=== PATIENT | female | born 1930 | race Caucasian/White ===

== ENCOUNTER 2018-04-08 08:25 | Observation (INO) ==
--- NOTE | 2018-04-08 09:06 | ED ---
HPI General Chief Complaint: Chest Pain Stated Complaint: Medical clearance Time Seen by Provider: 04/08/18 08:51 Source: patient Mode of arrival: ambulatory Limitations: no limitations History of Present Illness HPI narrative: 87-year-old female complained of chest pain and abdominal pain. Patient states that she has history angina and has frequent intermittent recurrent chest pain. Patient states that the chest pain usually resolved with nitroglycerin sublingually. Patient states that she started having substernal chest pain last night with radiation to the throat. Patient states that the chest pain lasted about an hour. Patient states that the chest pain resolved with nitroglycerin sublingually. Patient denies any chest pain now. Patient has been seen by aviation maintenance technician Dr. Arvizu. Patient was given prescription for metoprolol which she took for a short period of time and then stopped taking it because of side effect. Patient has been seen by personal physician and put on medication for COPD which she stopped also taking also. Patient states that she has a lot of indigestion, lightheadedness, generally malaise, nausea with eating recently. Patient states that she has intermittent low abdominal pain for the past month. Patient denies any dysuria frequency. Patient denies any vaginal discharge or bleeding. MD complaint: chest pain Complete Quality Measures for STEMI Alert Patients STEMI Alert: No Onset (ago): year(s) Duration: intermittent and now resolved Onset: during rest Pain location: substernal Severity: mild Severity scale (1-10): 5 Quality: aching and heaviness Pain radiation: neck Relieving factors: nitroglycerin Exacerbating factors: nothing Associated symptoms: nausea Treatments prior to arrival chest pain: none Related Data Home Medications Medication Instructions Recorded Confirmed amlodipine-olmesartan 1 tab PO DAILY 04/08/18 04/08/18 budesonide-formoterol [Symbicort] 2 puff INHALATION BID 04/08/18 04/08/18 hydrochlorothiazide 25 mg PO DAILY 04/08/18 04/08/18 levothyroxine 125 mcg PO DAILY 04/08/18 04/08/18 metoprolol tartrate 25 mg PO BID 04/08/18 04/08/18 omeprazole 20 mg PO DAILY 04/08/18 04/08/18 Allergies Allergy/AdvReac Type Severity Reaction Status Date / Time tetanus toxoid, adsorbed Allergy Severe UNKNOWN Unverified 05/18/17 19:08 CHILDHOOD REACTION Review of Systems Except as stated in HPI: all other systems reviewed are negative PMFSH Social History Social History Substance History: No History of Abuse Second Hand Smoke Exposure: No Smoking Status: Never smoker How Often Do You Have a Drink Containing Alcohol: Never Recent Travel in [facility] within the Last 8 Weeks: No Recent Out of Country Travel within the Last 8 Weeks: No Immunization History Tetanus Immunization: >5 Years Hx Influenza Vaccine This Season: Yes Exam Narrative Exam Narrative: GENERAL: Well-nourished, well-developed patient. SKIN: Focused skin assessment warm/dry. HEAD: Normocephalic. EYES: No scleral icterus. No injection or drainage. NECK: Supple, trachea midline. No JVD or lymphadenopathy. CARDIOVASCULAR: Regular rate and rhythm without murmurs, gallops, or rubs. RESPIRATORY: Breath sounds equal bilaterally. No accessory muscle use. GASTROINTESTINAL: Abdomen soft, nondistended. Patient has mild tenderness on palpation diffuse over the abdomen. No rebound tenderness. No mass. MUSCULOSKELETAL: No cyanosis, or edema. BACK: Nontender without obvious deformity. No CVA tenderness. Course Initial Documented Vital Signs Temperature 98.4 F 04/08/18 08:28 Pulse Rate 78 04/08/18 08:28 Respiratory Rate 20 04/08/18 08:28 Blood Pressure 189/88 H 04/08/18 08:28 Pulse Oximetry 97 04/08/18 08:28 Last Documented Vital Signs Temperature 98.1 F 04/08/18 16:00 Pulse Rate 97 H 04/08/18 16:00 Respiratory Rate 16 04/08/18 16:00 Blood Pressure 163/75 H 04/08/18 16:00 Pulse Oximetry 97 04/08/18 16:00 Medical Decision Making MDM Narrative Medical decision making narrative: 87-year-old female with chest pain and abdominal pain. Differential Diagnosis Differential Diagnosis: Differential diagnosis including angina, AR, PE, pneumothorax, gastritis, PUD, pancreatitis, cholecystitis, colitis, UTI, pyelonephritis, nephrolithiasis. Lab Data Result diagrams: 04/08/18 09:09 04/08/18 09:09 Lab Results 04/08/18 04/08/18 04/08/18 Range/Units 09:09 09:09 09:09 WBC 6.9 (4.0-11.0) th/mm3 RBC 4.55 (4.00-5.30) mil/mm3 Hgb 13.1 (11.6-15.3) gm/dL Hct 39.4 (35.0-46.0) % MCV 86.6 (80.0-100.0) fL MCH 28.8 (27.0-34.0) pg MCHC 33.2 (32.0-36.0) % RDW 15.5 (11.6-17.2) % Plt Count 315 (150-450) th/mm3 MPV 7.6 (7.0-11.0) fL Neut % (Auto) 47.3 (16.0-70.0) % Lymph % (Auto) 42.9 (9.0-44.0) % Whiteside % (Auto) 6.7 (0.0-8.0) % Eos % (Auto) 2.7 (0.0-4.0) % Baso % (Auto) 0.4 (0.0-2.0) % Neut # (Auto) 3.3 (1.8-7.7) th/mm3 Lymph # (Auto) 3.0 (1.0-4.8) th/mm3 Whiteside # (Auto) 0.5 (0.0-0.9) th/mm3 Eos # (Auto) 0.2 (0.0-0.4) th/mm3 Baso # (Auto) 0.0 (0.0-0.2) th/mm3 WBC Differential . Differential Comment Auto diff final PT 9.9 (9.8-11.6) sec INR 1.0 Ratio APTT 24.1 L (24.3-30.1) sec Sodium (136-145) meq/L Potassium (3.5-5.1) meq/L Chloride (98-107) meq/L Carbon Dioxide (21.0-32.0) meq/L Anion Gap (5-15) meq/L BUN (7-18) mg/dL Creatinine (0.50-1.00) mg/dL Estimated GFR (>89) mL/min Random Glucose (74-106) mg/dL Calcium (8.5-10.1) mg/dL Magnesium 2.3 (1.5-2.5) mg/dL Total Bilirubin (0.2-1.0) mg/dL AST (15-37) U/L ALT (10-53) U/L Alkaline Phosphatase (45-117) U/L Total Creatine Kinase 120 (26-192) U/L CK-MB (CK-2) 2.0 (0.5-3.6) ng/mL Troponin I Less than 0.02 L (0.02-0.05) ng/mL Total Protein (6.4-8.2) g/dL Albumin (3.4-5.0) g/dL Lipase 59 L (73-393) U/L Urine Color (Yellw/Straw) Urine Clarity (Clear) Urine pH (5.0-8.5) Ur Specific Walsh (1.002-1.035) Urine Protein (Neg-Trace) mg/dL Urine Glucose (UA) (Negative) mg/dL Urine Ketones (Negative) mg/dL Urine Occult Blood (Negative) Urine Nitrate (Negative) Urine Bilirubin (Negative) Urine Urobilinogen (Less than 2) mg/dL Ur Leukocyte Esterase (Negative) Urine RBC (0-3) /hpf Urine WBC (0-5) /hpf Ur Squamous Epith Cells (0-5) /hpf Urine Mucus (Occasional) /lpf Micro UA Comment Urine Culture Comments 04/08/18 04/08/18 Range/Units 09:09 10:55 WBC (4.0-11.0) th/mm3 RBC (4.00-5.30) mil/mm3 Hgb (11.6-15.3) gm/dL Hct (35.0-46.0) % MCV (80.0-100.0) fL MCH (27.0-34.0) pg MCHC (32.0-36.0) % RDW (11.6-17.2) % Plt Count (150-450) th/mm3 MPV (7.0-11.0) fL Neut % (Auto) (16.0-70.0) % Lymph % (Auto) (9.0-44.0) % Whiteside % (Auto) (0.0-8.0) % Eos % (Auto) (0.0-4.0) % Baso % (Auto) (0.0-2.0) % Neut # (Auto) (1.8-7.7) th/mm3 Lymph # (Auto) (1.0-4.8) th/mm3 Whiteside # (Auto) (0.0-0.9) th/mm3 Eos # (Auto) (0.0-0.4) th/mm3 Baso # (Auto) (0.0-0.2) th/mm3 WBC Differential Differential Comment PT (9.8-11.6) sec INR Ratio APTT (24.3-30.1) sec Sodium 142 (136-145) meq/L Potassium 4.0 (3.5-5.1) meq/L Chloride 108 H (98-107) meq/L Carbon Dioxide 26.2 (21.0-32.0) meq/L Anion Gap 8 (5-15) meq/L BUN 19 H (7-18) mg/dL Creatinine 0.97 (0.50-1.00) mg/dL Estimated GFR 55 L (>89) mL/min Random Glucose 118 H (74-106) mg/dL Calcium 9.1 (8.5-10.1) mg/dL Magnesium (1.5-2.5) mg/dL Total Bilirubin 0.3 (0.2-1.0) mg/dL AST 13 L (15-37) U/L ALT 13 (10-53) U/L Alkaline Phosphatase 69 (45-117) U/L Total Creatine Kinase (26-192) U/L CK-MB (CK-2) (0.5-3.6) ng/mL Troponin I (0.02-0.05) ng/mL Total Protein 7.8 (6.4-8.2) g/dL Albumin 3.7 (3.4-5.0) g/dL Lipase (73-393) U/L Urine Color Yellow (Yellw/Straw) Urine Clarity Clear (Clear) Urine pH 6.0 (5.0-8.5) Ur Specific Walsh 1.041 H (1.002-1.035) Urine Protein Negative (Neg-Trace) mg/dL Urine Glucose (UA) Negative (Negative) mg/dL Urine Ketones Negative (Negative) mg/dL Urine Occult Blood Negative (Negative) Urine Nitrate Negative (Negative) Urine Bilirubin Negative (Negative) Urine Urobilinogen Less than 2 (Less than 2) mg/dL Ur Leukocyte Esterase Trace H (Negative) Urine RBC 1 (0-3) /hpf Urine WBC 1 (0-5) /hpf Ur Squamous Epith Cells 2 (0-5) /hpf Urine Mucus Few H (Occasional) /lpf Micro UA Comment Culture not ind Urine Culture Comments Culture not ind Imaging Data Radiologist's impression: ITS Impressions Chest X-Ray 04/08/18 09:00 CONCLUSION: Stable chest without evidence of acute process. Abdomen/Pelvis CT 04/08/18 09:02 CONCLUSION: 1. There continues to be some mild dilatation of the biliary system most likely reservoir effect secondary to previous cholecystectomy. Recommend correlation with patient's liver laboratory values. 2. Stable benign-appearing 1.4 cm right hepatic cyst. 3. Multiple bilateral benign-appearing renal cysts. 4. Scattered diverticulosis involving the descending and sigmoid colon without inflammatory changes. Myocardial Perfusion Scan Nuc Med 04/08/18 12:11 CONCLUSION: 1. No evidence of ischemic myocardial changes. Discharge Plan Discharge Disposition Patient Disposition: 01 Discharge Home Discharge Condition Condition: Stable Discharge Order Discharge Orders: Discharge Order (Routine); Ordered 04/08/18 Ordered By: Walt Gooden Discharge Details Anticipated Discharge Date: 04/08/18 Physicians Team ED Provider: Marc Rdz Primary Care Provider: UNKNOWN, Attending Provider: Sean Combs Status ED Status: Left Department Discharge Information Discharge Date/Time: 04/08/18 13:30
[2018-04-08 09:26] LABS: Baso % (Auto) 0.4 % (0.0-2.0); Eos # (Auto) 0.2 th/mm3 (0.0-0.4); Eos % (Auto) 2.7 % (0.0-4.0); Hematocrit 39.4 % (35.0-46.0); Hemoglobin 13.1 gm/dL (11.6-15.3); Lymph % (Auto) 42.9 % (9.0-44.0); Mean Corpuscular HGB Conc 33.2 % (32.0-36.0); Mean Corpuscular Hemoglobin 28.8 pg (27.0-34.0); Mean Corpuscular Volume 86.6 fL (80.0-100.0); Mean Platelet Volume 7.6 fL (7.0-11.0); Mono # (Auto) 0.5 th/mm3 (0.0-0.9); Mono % (Auto) 6.7 % (0.0-8.0); Neut # (Auto) 3.3 th/mm3 (1.8-7.7); Neut % (Auto) 47.3 % (16.0-70.0); Platelet Count 315 th/mm3 (150-450); Red Blood Count 4.55 mil/mm3 (4.00-5.30); Red Cell Distribution Width 15.5 % (11.6-17.2); White Blood Count 6.9 th/mm3 (4.0-11.0)
--- NOTE | 2018-04-08 09:31 | XR ---
EXAM DATE: 04/08/2018 9:28 AM EDT AGE/SEX: 87 years / Female INDICATIONS: Chest pains last night with pressure. CLINICAL DATA: This is the patient's initial encounter. Patient reports that signs and symptoms have been present for 2 days and indicates a pain score of 6/10. MEDICAL/SURGICAL HISTORY: Hypertension. Diabetes. None. COMPARISON: [facility] [place], CHEST SINGLE AP, 10/06/2015. . FINDINGS: A single AP view of the chest demonstrates the lungs to be symmetrically aerated without evidence of mass, infiltrate or effusion. The cardiomediastinal contours are unremarkable. Osseous structures a re intact. CONCLUSION: Stable chest without evidence of acute process. Electronically signed by: Glenn Alvarez MD 04/08/2018 9:30 AM EDT
[2018-04-08 09:34] LABS: Activated Partial Thrombo Time 24.1 sec (24.3-30.1); Prothrombin Time 9.9 sec (9.8-11.6)
[2018-04-08 09:45] LABS: Albumin 3.7 g/dL (3.4-5.0); Anion Gap 8 meq/L (5-15); Aspartate Aminotransferase 13 U/L (15-37); Blood Urea Nitrogen 19 mg/dL (7-18); Calcium 9.1 mg/dL (8.5-10.1); Carbon Dioxide 26.2 meq/L (21.0-32.0); Chloride 108 meq/L (98-107); Glomerular Filtration Rate 55 mL/min (>89); Glucose,Random 118 mg/dL (74-106); Sodium 142 meq/L (136-145)
[2018-04-08 09:46] LABS: Lipase 59 U/L (73-393); Magnesium 2.3 mg/dL (1.5-2.5)
[2018-04-08 09:48] LABS: Alanine Aminotransferase 13 U/L (10-53); Alkaline Phosphatase 69 U/L (45-117); Total Protein 7.8 g/dL (6.4-8.2)
[2018-04-08 09:49] LABS: Creatine Kinase 120 U/L (26-192)
--- NOTE | 2018-04-08 10:40 | CT ---
EXAM DATE: 04/08/2018 10:32 AM EDT AGE/SEX: 87 years / Female INDICATIONS: Abdomen and chest pain. Nausea. CLINICAL DATA: This is the patient's initial encounter. Patient reports that signs and symptoms have been present for 2 days and indicates a pain score of 4/10. MEDICAL/SURGICAL HISTORY: Carcinoma, bladder. Appendectomy. Cholecystectomy. ORAL CONTRAST: No oral contrast ingested. RADIATION DOSE: 6.77 CTDI (mGy) COMPARISON: [facility], CT ABDOMEN & PELVIS W CONTRAST, 12/12/2011. . TECHNIQUE: Multiple contiguous axial images were obtained through the abdomen and pelvis following b olus infusion of 96 ml Omnipaque 350 (iohexol) nonionic water-soluble contrast as a single exam dos e. No oral contrast ingested. Using automated exposure control and adjustment of the mA and/or kV ac cording to patient size, radiation dose was kept as low as reasonably achievable to obtain optimal di agnostic quality images. DICOM format image data is available electronically for review and comparis on. FINDINGS: Lower Lungs: The visualized lower lungs are clear. Small hiatal hernia at the GE junction. Liver: The liver is normal in size. There continues to be some mild dilatation of the biliary system which was present in 2011. There is a stable small hepatic cyst measuring 1.4 cm in the right lobe of the liver. This is unchanged compared to the prior exam. The gallbladder is been surgically removed. There is no evidence of ascites. Spleen: Homogeneous density without enlargement. Pancreas: Unremarkable without mass or calcification. Kidneys: Normal in size and shape. No evidence of mass or hydronephrosis. There continue be multiple bilateral renal cysts. The largest cyst on the right measures 6.7 cm. The largest cyst on the left m easures 4.5 cm. These cysts were present on the prior exam. Adrenal Glands: Unremarkable. Aorta: Atherosclerotic changes. No aneurysmal dilatation. Bowel/Mesentery: The bowel loops are grossly unremarkable. The cecum and sigmoid colon have a normal configuration. There is some scattered diverticulosis throughout the sigmoid and descending colon wi thout definite inflammatory changes. There is stool throughout the colon. These findings are not sign ificantly changed compared to the prior exam. No free fluid or loculated fluid collections. Abdominal Wall: Intact. Retroperitoneum: No evidence of adenopathy in the retrocrural, para-aortic, or deep pelvic regions. Bladder: Contours are smooth. Reproductive Organs: No abnormal masses or calcifications seen. No significant change compared to 20 12. Inguinal: The inguinal region is unremarkable without evidence of adenopathy. Bony Structures: Primary bony degenerative changes. No significant changes compared to 2012. CONCLUSION: 1. There continues to be some mild dilatation of the biliary system most likely reservoir effect sec ondary to previous cholecystectomy. Recommend correlation with patient's liver laboratory values. 2. Stable benign-appearing 1.4 cm right hepatic cyst. 3. Multiple bilateral benign-appearing renal cysts. 4. Scattered diverticulosis involving the descending and sigmoid colon without inflammatory changes. Electronically signed by: Stefano Hamilton MD 04/08/2018 10:39 AM EDT
[2018-04-08 11:18] LABS: Bilirubin,Urine Negative (Negative); Clarity,Urine Clear (Clear); Color,Urine Yellow (Yellw/Straw); Glucose,Urine (UA) Negative (Negative); Leukocyte Esterase,Urine Trace (Negative); Mucus,Urine Few /lpf (Occasional); Nitrite,Urine Negative (Negative); Specific Gravity,Urine 1.041 (1.002-1.035); Squamous Epithelial Cell,Urine 2 /hpf (0-5)
--- NOTE | 2018-04-08 14:04 | ECG ---
Date Performed: 04/08/2018 Time Performed: 08:40:07 PTAGE: 87 years EKG: Sinus rhythm NORMAL ECG No significant change from prior electrocardiogram. PREVIOUS TRACING : 04/25/2014 08.47 DOCTOR: Anirudh Silveira Interpretating Date/Time 04/18/2018 17:52:02
[2018-04-08] MEDS ORDERED: Regadenoson Inj 0.4 MG/5 ML Syringe IV.PUSH ONE ×2 (15:07→15:48)
--- NOTE | 2018-04-08 16:00 | P.HPCA ---
History of Present Illness Primary Care Physician: UNKNOWN Chief Complaint: Chest pain History of Present Illness: This is a 87-year-old female that presents to ED with complaint of chest discomfort in the center of her chest that she describes as a tightness that began yesterday evening and persisted throughout the night and even is present at this time. She took a total of 3 nitroglycerin at home which did help with her symptoms but only brought it down to about a 2 out of 10. States that she has been prescribed nitroglycerin by her deputy building guard although she states she has never had an abnormal stress test he can recall ever having a cardiac catheterization. She states that she was diagnosed with angina and uses a nitro whenever she gets chest pain. Usually the nitro resolves quickly but it did not last night which concerned her and made her come to the ED today. She felt some nausea and shortness of breath with her symptoms last night but no diaphoresis. The discomfort radiated to her left shoulder and noticed some tingling in her fingers. She saw her deputy building guard about a month ago for checkup and believes she had a normal stress test about 1 year ago in his office. She follows Dr. Arvizu. A CT of abdomen and pelvis were obtained in the ED. Patient is denying having abdominal pains but states she felt very nauseous and thought she also may been constipated although she states she had a bowel movement yesterday and the day before that. Lifetime non-smoker. Denies illicit drug use or alcohol use. Denies family history of CAD. Patient has had cholecystectomy. - Diagnosis (1) Chest pain (2) Hypertension (3) GERD (gastroesophageal reflux disease) (4) Hypothyroidism (5) Hyperlipidemia (6) Asthma Inpatient Certification: I certify that the inpatient services were ordered in accordance with Medicare regulations governing the order. This includes certification that hospital inpatient services are reasonable and necessary and in the case of services not specified as inpatient-only under 42 CFR 419.22(n), that they are appropriately provided as inpatient services in accordance to with the 2-midnight benchmark under 43 CFR 412.3(e) Review of Systems General: Patient denies fevers, chills recent, and recent travel HEENT: Patient denies headache, sore throat, difficulty swallowing. Cardiovascular: Has the chest discomfort as mentioned above. Denies sensation of heart beating rapidly or irregularly. No syncope. Denies diaphoresis. Respiratory: She was a little short of breath. Denies inspirational chest discomfort. Denies coughing wheezing or hemoptysis. GI: She was nauseous last evening but denies vomiting, diarrhea, abdominal pain , bloody stools. Musculoskeletal: Patient denies joint pain or edema. Denies calf pain or edema. Neurovascular: Patient denies numbness, tingling, weakness in extremities. Denies headache. Endocrine: Denies polyuria and polydipsia. Hematologic: Denies easy bruising. Skin: Denies rash or itching. PMFSH - History History Provided By: Patient - Medical History Medical History: Medical History (Last Reviewed 04/08/18 @ 09:08 by Marc Rdz MD) Angina at rest COPD (chronic obstructive pulmonary disease) GERD (gastroesophageal reflux disease) Hypertension Hypothyroidism - Surgical History Surgical History: Surgical History (Last Reviewed 04/08/18 @ 09:08 by Marc Rdz MD) History of appendectomy History of cholecystectomy History of hemorrhoidectomy Hx of tonsillectomy - Tobacco History Second Hand Smoke Exposure: No Smoking Status: Never smoker - Alcohol History How Often Do You Have a Drink Containing Alcohol: Never - Substance Use History Substance History: No History of Abuse - Travel History Recent Travel in the [place] Within the Last 8 Weeks: No Recent Travel Out of the Country Within the Last 8 Weeks: No - Immunization History Tetanus Immunization: >5 Years Hx Influenza Vaccine This Season: Yes Medications and Allergies Active Medications: Active Medications Ondansetron HCl (Zofran Odt) 4 mg PO Q6H PRN PRN Reason: NAUSEA Sodium Chloride (Ns Flush) 2 ml IV.FLUSH BID ANNEMARIE Sodium Chloride (Ns Flush) 2 ml IV.FLUSH UNSCH PRN PRN Reason: FLUSH AFTER USING IV ACCESS Allergies Allergy/AdvReac Type Severity Reaction Status Date / Time tetanus toxoid, adsorbed Allergy Severe UNKNOWN Unverified 05/18/17 19:08 CHILDHOOD REACTION Home Medications Medication Instructions Recorded Confirmed Type amlodipine-olmesartan 1 tab PO DAILY 04/08/18 04/08/18 History budesonide-formoterol [Symbicort] 2 puff INHALATION BID 04/08/18 04/08/18 History hydrochlorothiazide 25 mg PO DAILY 04/08/18 04/08/18 History levothyroxine 125 mcg PO DAILY 04/08/18 04/08/18 History metoprolol tartrate 25 mg PO BID 04/08/18 04/08/18 History omeprazole 20 mg PO DAILY 04/08/18 04/08/18 History Exam Vital signs: Vital Signs 04/08/18 08:28 04/08/18 08:31 04/08/18 09:00 Temperature 98.4 F Pulse Rate 78 78 61 Respiratory Rate 20 20 20 Blood Pressure 189/88 H 123/59 L Pulse Oximetry 97 95 95 04/08/18 12:11 Temperature Pulse Rate 77 Respiratory Rate 16 Blood Pressure 134/86 Pulse Oximetry Intake & Output 04/07/18 04/08/18 04/08/18 18:59 06:59 18:59 Weight 78.8 kg Other: Weight On Admission 78.8 kg Narrative: GENERAL: This is a well-nourished, well-developed patient, in no apparent distress. Patient speaks in clear complete sentences. Patient is pleasant. HEENT: Head is atraumatic and normocephalic. Neck is supple without lymphadenopathy and trachea is midline. No JVD or carotid bruits. CARDIOVASCULAR: Grade 2 systolic murmur left sternal border as well as right sternal border without radiation to the neck. Regular rate and rhythm without gallops or rubs. RESPIRATORY: Clear to auscultation. Breath sounds equal bilaterally. No wheezes , rales, or rhonchi. Chest wall is nontender. No use of accessory muscles. GASTROINTESTINAL: Abdomen is nontender, nondistended. Abdomen soft. No obvious pulsatile mass or bruit. No CVA tenderness. Strong femoral pulses bilaterally. Normal bowel sounds in all quadrants. MUSCULOSKELETAL: Patient is moving upper and lower extremities freely. No calf tenderness or edema, no Homans sign. Strong pulses in upper and lower extremities. NEUROLOGICAL: Patient is alert and oriented. Cranial nerves 2-12 are grossly intact. No focal deficits and speech is clear. SKIN: No rash and turgor is normal. Results 04/08/18 09:09 04/08/18 09:09 Cardiac Enzymes 04/08/18 04/08/18 Range/Units 09:09 09:09 AST 13 L (15-37) U/L CK-MB (CK-2) 2.0 (0.5-3.6) ng/mL Troponin I Less than 0.02 L (0.02-0.05) ng/mL Coagulation 04/08/18 Range/Units 09:09 PT 9.9 (9.8-11.6) sec APTT 24.1 L (24.3-30.1) sec CBC 04/08/18 Range/Units 09:09 WBC 6.9 (4.0-11.0) th/mm3 RBC 4.55 (4.00-5.30) mil/mm3 Hgb 13.1 (11.6-15.3) gm/dL Hct 39.4 (35.0-46.0) % Plt Count 315 (150-450) th/mm3 Neut # (Auto) 3.3 (1.8-7.7) th/mm3 Lymph # (Auto) 3.0 (1.0-4.8) th/mm3 Boundary # (Auto) 0.5 (0.0-0.9) th/mm3 Eos # (Auto) 0.2 (0.0-0.4) th/mm3 Baso # (Auto) 0.0 (0.0-0.2) th/mm3 Comprehensive Metabolic Panel 04/08/18 Range/Units 09:09 Sodium 142 (136-145) meq/L Potassium 4.0 (3.5-5.1) meq/L Chloride 108 H (98-107) meq/L Carbon Dioxide 26.2 (21.0-32.0) meq/L BUN 19 H (7-18) mg/dL Creatinine 0.97 (0.50-1.00) mg/dL Calcium 9.1 (8.5-10.1) mg/dL AST 13 L (15-37) U/L ALT 13 (10-53) U/L Alkaline Phosphatase 69 (45-117) U/L Total Protein 7.8 (6.4-8.2) g/dL Albumin 3.7 (3.4-5.0) g/dL Intake and Output 04/08/18 04/08/18 04/08/18 06:59 14:59 22:59 Other: Weight 78.8 kg Weight On Admission 78.8 kg Patient Weight 04/09/18 06:59 Weight 78.8 kg EKG interpretations - EKG EKG shows: sinus rhythm (Initial EKG is sinus rhythm without significant ST segment depressions or elevations.) Caprini VTE Risk Assessment Caprini VTE Risk Assessment: Moderate/High Risk (score >= 2) Caprini Risk Assessment Model: Point Value = 1 Point Value = 2 Point Value = 3 Point Value = 5 Age 41-60 Minor surgery BMI > 25 kg/m2 Swollen legs Varicose veins or History of unexplained or recurrent spontaneous Oral contraceptives or hormone replacement Sepsis (< 1 month) Serious lung disease, including pneumonia (< 1 month) Abnormal pulmonary function Acute myocardial infarction Congestive heart failure (< 1 month) History of inflammatory bowel disease Medical patient at bed rest Age 61-74 Arthroscopic surgery Major open surgery (> 45 min) Laparoscopic surgery (> 45 min) Malignancy Confined to bed (> 72 hours) Immobilizing plaster cast Central venous access Age >= 75 History of VTE Family history of VTE Factor V Leiden Prothrombin [id number] Lupus anticoagulant Anticardiolipin antibodies Elevated serum homocysteine Heparin-induced thrombocytopenia Other congenital or acquired thrombophilia Stroke (< 1 month) Elective arthroplasty Hip, pelvis, or leg fracture Acute spinal cord injury (< 1 month) Prophylaxis Regimen: Total Risk Factor Score Risk Level Prophylaxis Regimen 0-1 Low Early ambulation 2 Moderate Order ONE of the following: *Sequential Compression Device (SCD) *Heparin 5000 units SQ BID 3-4 Higher Order ONE of the following medications: *Heparin 5000 units SQ TID *Enoxaparin/Lovenox 40 mg SQ daily (WT < 150 kg, CrCl > 30 mL/min) *Enoxaparin/Lovenox 30 mg SQ daily (WT < 150 kg, CrCl > 10-29 mL/min) *Enoxaparin/Lovenox 30 mg SQ BID (WT < 150 kg, CrCl > 30 mL/min) AND/OR *Sequential Compression Device (SCD) 5 or more Highest Order ONE of the following medications: *Heparin 5000 units SQ TID (Preferred with Epidurals) *Enoxaparin/Lovenox 40 mg SQ daily (WT < 150 kg, CrCl > 30 mL/min) *Enoxaparin/Lovenox 30 mg SQ daily (WT < 150 kg, CrCl > 10-29 mL/min) *Enoxaparin/Lovenox 30 mg SQ BID (WT < 150 kg, CrCl > 30 mL/min) AND *Sequential Compression Device (SCD) Assessment and Plan - Assessment (1) Chest pain Code(s): R07.9 - Chest pain, unspecified Status: Acute (2) Hypertension Code(s): I10 - Essential (primary) hypertension Status: Acute (3) GERD (gastroesophageal reflux disease) Code(s): K21.9 - Gastro-esophageal reflux disease without esophagitis Status: Acute (4) Hypothyroidism Code(s): E03.9 - Hypothyroidism, unspecified Status: Acute (5) Hyperlipidemia Code(s): E78.5 - Hyperlipidemia, unspecified Status: Acute (6) Asthma Code(s): J45.909 - Unspecified asthma, uncomplicated Status: Acute - Plan * Chest pain: Patient has had first EKG and troponin that are okay with symptoms lasting greater than 12 hours. She was seen by Dr. Sean Combs of cardiology in the chest pain center. Seems atypical being the duration of time. Patient will undergo a Lexiscan. She will be discharged home if her stress test is nonischemic with instructions to follow-up with PCP and her deputy building guard. I attempted to speak with her deputy building guard however the call service stated that he was out of town. * Hypertension: Continue medication. * Hyperlipidemia: Continue medication. * Hypothyroidism: Continue medication. * GERD: Continue medication. * Hyperlipidemia: Continue medication. Patient is stable at this time. She is agreeable to this plan. H&P: Quality - VTE Deep Vein Thrombosis/Pulmonary Embolism Present on Admission: No
--- NOTE | 2018-04-08 16:39 | NM ---
EXAM DATE: 04/08/2018 4:29 PM EDT AGE/SEX: 87 years / Female INDICATIONS:Angina. . Left sided chest pain. CLINICAL DATA: This is the patient's initial encounter. Patient reports that signs and symptoms have been present for 1 day and indicates a pain score of 5/10. MEDICAL/SURGICAL HISTORY: Chronic obstructive pulmonary disease. Hypertension. Gastroesophage al reflux disease. Appendectomy. Cholecystectomy. Tonsillectomy. COMPARISON: No prior exams available for comparison. DOSE: 8.1 mCi Tc 99m Myoview at rest 27.3 mCi [id number] at stress 0.4 mg Lexiscan STRESS SYMPTOMS: Anxious. EJECTION FRACTION: 59 % TECHNIQUE: The patient underwent pharmacologic stress with infusion of prescribed dose. Continuous ECG tracing was monitored during stress. Gated SPECT imaging was performed after stress and conventi onal SPECT imaging was performed at rest. The examination was performed on a SPECT/CT scanner, both attenuation and non-corrected datasets were reviewed. FINDINGS: Distribution: The maximum perfused segment at stress is in the septal wall. Perfusion Study: The pattern of perfusion at stress is within normal limits. Gated Study: There are intact wall motion and wall thickening without hypokinetic or dyskinetic segm ents. The ejection fraction is calculated at 59%. RISK CATEGORY: Low (<1% Annual Motality Rate) CONCLUSION: 1. No evidence of ischemic myocardial changes. Electronically signed by: Stefano Hamilton MD 04/08/2018 4:38 PM EDT
--- NOTE | 2018-07-05 13:21 | TR ---
Date Performed: 04/08/2018 Time Performed: 15:38:55 DOCTOR: Joey Anderson DRUG LIST: CLINICAL HISTORY: REASON FOR TEST: REASON FOR ENDING: OBSERVATION: CONCLUSION: Lexiscan stress test was performed under standard four minute protocol. Radionuclide was injected one minute prior to ending the test. No electrocardiographic abormalities were present to suggest ischemia. Nuclear imaging and interpretation are pending. COMMENTS:
== END 2018-04-08 17:40 | disposition home or self-care (01) ==
LOC: NEPHCDU 08:25 → NEDA 08:25 → NEPE 08:25 → NEPHCDU 13:17
PROVIDERS: ADMIT Internal Medicine Cardiovascular Disease; ATTEND Internal Medicine Cardiovascular Disease